=== PATIENT | female | born 1950 | race Caucasian/White ===

== ENCOUNTER 2019-05-23 04:23 | Inpatient (IN) | payer MEDICARE, BC ==
[~2019-05-23] VITALS: Ht 162.6 cm; Wt 62.0 kg
[2019-05-23] VITALS (19 sets, daily range): BP systolic 95–134; BP diastolic 54–84
[2019-05-23] MEDS ORDERED: ondansetron/PF 4mg/2ml inj IV ONE (04:45)
[2019-05-23] MEDS ORDERED: normal saline 1000ML IV soln IVB ONE (04:45)
[2019-05-23] MEDS: morphine 4 MG/ML inj SYRINge IV PRN ×2 (04:53→06:38)
[2019-05-23] MEDS ORDERED: meclizine 12.5mg tablet PO ONE ×2 (05:00→05:30)
[2019-05-23 05:04] LABS: BASOPHILS % (AUTO) 0.2 % (0-1); EOSINOPHILS % (AUTO) 0.4 % (0-6); HEMATOCRIT 39.8 % (35.0-45.0); HEMOGLOBIN 13.3 g/dl (12.0-16.0); LYMPHOCYTES # (AUTO) 1.2 X10'3 (1.1-4.8); MEAN CORPUSCULAR HEMOGLOBIN 30.2 PG (27.0-31.0); MEAN CORPUSCULAR HGB CONC 33.3 g/dL (33.0-36.5); MEAN CORPUSCULAR VOLUME 90.8 FL (78-98); MEAN PLATELET VOLUME 9.1 FL (7.4-10.4); MONOCYTES # (AUTO) 0.7 X10'3 (0-0.9); MONOCYTES % (AUTO) 6.6 % (2-12); NEUTROPHILS # (AUTO) 9.3 X10'3 (1.8-7.7); NEUTROPHILS % (AUTO) 81.8 % (42-75); PLATELET COUNT 179 X10'3 (140-440); RED BLOOD COUNT 4.38 X10'6 (4.20-5.60); RED CELL DISTRIBUTION WIDTH 13.2 % (11.5-14.5); WHITE BLOOD COUNT 11.3 X10'3 (4.5-11.0)
[2019-05-23 05:17] LABS: ALANINE AMINOTRANSFERASE 17 U/L (12-78); ALBUMIN 3.6 G/DL (3.4-5.0); ALKALINE PHOSPHATASE 52 IU/L (46-116); ANION GAP 10 (8-16); ASPARTATE AMINO TRANSFERASE 14 U/L (10-37); BILIRUBIN,TOTAL 0.7 MG/DL (0.1-1.0); BLOOD UREA NITROGEN 15 MG/DL (7-18); BUN/CREATININE RATIO 15.8 (6.6-38.0); CALCIUM 8.9 MG/DL (8.5-10.1); CHLORIDE 105 MMOL/L (99-107); CREATININE 0.95 MG/DL (0.40-0.90); GLUCOSE 116 MG/DL (70-104); LIPASE 165 U/L (73-393); POTASSIUM 3.7 MMOL/L (3.5-5.1); SODIUM 142 MMOL/L (135-145); TOTAL CARBON DIOXIDE 27.1 MMOL/L (24-32); TOTAL PROTEIN 7.1 G/DL (6.4-8.2); eGFR 58 ML/MIN
[2019-05-23] MEDS ORDERED: piperacillin/tazo 3.375gm/50ml 50 ML IV ONE (06:00)
[2019-05-23 06:25] LABS: CLARITY,URINE SLIGHTLY CLOUDY (Clear); COLOR,URINE YELLOW (Yellow); GLUCOSE, URINE NEGATIVE (Neg); KETONES,URINE NEGATIVE (Neg); LEUKOCYTE ESTERASE ,URINE TRACE (Neg); NITRITES, URINE POSITIVE (Neg); OCCULT BLOOD,URINE NEGATIVE (Neg); PH,URINE 8.5 (4.8-8.0); PROTEIN,URINE NEGATIVE (Neg); UROBILINOGEN,URINE 0.2 E.U/dL (0.2-1.0)
[2019-05-23 06:30] LABS: UA COLLECTION TYPE CLN CATCH MIDSTREAM
[2019-05-23 06:32] LABS: BACTERIA,URINE 4+ /HPF (Neg); RBC,URINE 0-2 /HPF (0-2); SQUAMOUS EPITHELIAL CELL,UR FEW /LPF (FEW); WBC,URINE 20-30 /HPF (0-4)
[2019-05-23 06:33] LABS: WBC CLUMPS,URINE MODERATE /HPF (NEGATIVE)
[2019-05-23] MEDS ORDERED: LANS15CA18 PO (06:33)
[2019-05-23] MEDS ORDERED: METO25TA6 PO (06:33)
[2019-05-23] MEDS ORDERED: normal saline 1000ml 1,000 ML IV ONE (07:45)
[2019-05-23] MEDS ORDERED: metoprolol tartrate 25mg tablet PO SCH (08:50)
[2019-05-23] MEDS ORDERED: potassium Cl 20 mEq SR tablet PO PRN ×2 (08:50)
[2019-05-23] MEDS: K and/or MAG REPLACEMENT MC SCH (08:50)
[2019-05-23] MEDS ORDERED: magnesium hydroxide 30ml (MOM) UD suspension PO PRN (08:50)
[2019-05-23] MEDS ORDERED: mag hydrox/Alum hydrox/simeth 30ml oral suspension PO PRN (08:50)
[2019-05-23] MEDS ORDERED: potassium CL 10mEq/100ml bag 100 ML IV PRN ×2 (08:50)
[2019-05-23] MEDS ORDERED: diphenhydrAMINE 25mg capsule PO PRN (08:50)
[2019-05-23] MEDS ORDERED: HYDROcodone/acetaminophen 10/325mg tab PO PRN (08:50)
[2019-05-23] MEDS ORDERED: diphenhydrAMINE 50 mg/ml inj IV PRN (08:50)
[2019-05-23] MEDS ORDERED: HYDROcodone/acetaminophen 5mg/325mg tablet PO PRN (08:50)
[2019-05-23] MEDS ORDERED: magnesium 4gm in 100ml NS 100 ML IV PRN (08:50)
[2019-05-23] MEDS ORDERED: magnesium Cl slow-release 64mg tablet PO PRN (08:50)
[2019-05-23] MEDS ORDERED: metoclopramide 5 mg/ml inj IV PRN (08:50)
[2019-05-23] MEDS ORDERED: acetaminophen 650mg rectal suppository RC PRN (08:50)
[2019-05-23] MEDS ORDERED: ondansetron/PF 4mg/2ml inj IV PRN ×2 (08:50→16:25)
[2019-05-23] MEDS ORDERED: acetaminophen 325mg tablet PO PRN ×2 (08:50)
[2019-05-23] MEDS ORDERED: magnesium 2GM in 50ml NS 50 ML IV PRN (08:50)
[2019-05-23] MEDS ORDERED: bisacodyl 10mg suppository rectal RC PRN (08:50)
[2019-05-23] MEDS ORDERED: morphine 2 MG/ML inj. syringe IV PRN ×2 (08:50)
[2019-05-23] MEDS: normal saline 1000ml 1,000 ML IV SCH ×3 (09:09→19:45)
[2019-05-23 09:21] LABS: HEMOGLOBIN A1C 5.5 % (4.5-6.2)
--- NOTE | 2019-05-23 10:45 | NUR ---
Pt. arrived on floor. She has been orientated to room, knows who her nurse is, and is awaiting a doctor. Assessment completed and fluids running per order. pt. states 0/10 pain at this time.
--- NOTE | 2019-05-23 11:50 | NUR ---
PAGER ID: [phone] MESSAGE: [id number] Marie ELLER pt. positive nasal swab MRSA
[2019-05-23] MEDS: piperacillin/tazo 3.375gm/50ml 50 ML IV SCH (15:52)
[2019-05-23] MEDS ORDERED: ringers solution, lacted 1,000 ML IV SCH (16:21)
[2019-05-23] MEDS ORDERED: proCHLORperazine 10 MG/2 ml inj IV PRN (16:25)
[2019-05-23] MEDS ORDERED: morphine 4 MG/ML inj SYRINge IV PRN ×2 (16:25)
[2019-05-23] MEDS ORDERED: meperidine/PF 25mg/ml syringe IV PRN ×3 (16:25)
--- NOTE | 2019-05-23 16:30 | NUR ---
Pt. removed from floor to go to OR for lap. appi. with Mina.
[2019-05-23] MEDS ORDERED: BUPIVAcaine/PF 2.5 mg/ml (0.25%) 30ml vial ONE ×2 (17:06→17:23)
[2019-05-23] MEDS ORDERED: fentaNYL/PF 50MCG/1 ML 2ML syringe ONE (17:19)
[2019-05-23] MEDS ORDERED: midazolam 2 mg/2 ml injection ONE (17:19)
[2019-05-23] MEDS ORDERED: propofol inj 20 ML IV ONE (17:21)
[2019-05-23] MEDS ORDERED: LIDOcaine 2% (20mg/ml) 5ml vial ONE (17:21)
[2019-05-23] MEDS ORDERED: dexamethasone sod phosphate 10mg/ml inj ONE (17:22)
[2019-05-23] MEDS ORDERED: neostigmine methylsulfate 1 MG/ML 10ml vial ONE (17:22)
[2019-05-23] MEDS ORDERED: sevoflurane 250ml liquid IH ONE (17:22)
[2019-05-23] MEDS ORDERED: ceFOXitin 2 GM ADDVANTGE BAG 50 ML IV ONE (17:49)
[2019-05-23] MEDS ORDERED: acetaminophen 1,000mg/100ml IV 100 ML IV ONE (17:57)
[2019-05-23] MEDS ORDERED: ondansetron/PF 4mg/2ml inj ONE (18:10)
[2019-05-23] MEDS ORDERED: rocuronium 10mg/ml inj IV ONE (18:11)
[2019-05-23] MEDS ORDERED: glycopyrrolate 0.2mg/ml inj ONE (18:21)
--- NOTE | 2019-05-23 18:32 | NUR ---
Received from OR via SURGICAL BED , accompanied by Anesthesiologist FLAVIO and report given by Anesthesiolgist. PATIENT WITH 18G PIV IN LEFT UE RUNNING LR AT 100. MEDICATED FOR PAIN UPON ARRIVAL/ Addendum: 05/23/19 at 1857 by Pranav Jones RN, RN Amended: Links added.
--- NOTE | 2019-05-23 18:33 | NUR ---
Pt. still in OR at this time. Gave report to Delmi CARRILLO.
--- NOTE | 2019-05-23 18:43 | NUR ---
5Patient in room [facility]. I have received report from LORENA Huff and had the opportunity to ask questions and assume patient care. Patient at the OR at the moment Addendum: 05/23/19 at 1844 by Mikayla Tamayo RN Amended: Links added.
--- NOTE | 2019-05-23 19:32 | NUR ---
ALL TRANSFER CRITERIA HAS BEEN MET. IV INTACT. PATIENT OFFERED MORE PAIN MEDS BUT PATIENT DECLINES. PATIENT DRESSINGS TO ABDOMEN ARE ALL CDI. LORENA ALVARES FOUND AND WENT INTO ROOM TO ASSESS PATIENT. PATIENTS DAUGHTER PRESENT AT BEDSIDE. Addendum: 05/23/19 at 1944 by Pranav Preciado - LORENA CARRILLO Amended: Links added.
--- NOTE | 2019-05-23 19:36 | NUR ---
patient arrived from OR in no distress with dtr, received report from Pranav, OR
[2019-05-23] MEDS ORDERED: temazepam 15mg capsule PO PRN (21:00)
[2019-05-23] MEDS: lactobacillus rhamnosus 10,000 MMU CELLS/CAPSULE PO SCH (21:18)
[2019-05-23] MEDS: heparin, porcine 5000 units/ml vial SQ SCH (21:19)
[2019-05-23] MEDS: metoprolol tartrate 25mg tablet PO SCH (21:20)
[2019-05-24] VITALS: BP 94/59
[2019-05-24] MEDS: piperacillin/tazo 3.375gm/50ml 50 ML IV SCH ×3 (00:43→15:43)
[2019-05-24] MEDS: normal saline 1000ml 1,000 ML IV SCH ×2 (04:19→15:43)
[2019-05-24 05:23] LABS: BASOPHILS % (AUTO) 0.1 % (0-1); EOSINOPHILS % (AUTO) 0 % (0-6); HEMATOCRIT 38.8 % (35.0-45.0); HEMOGLOBIN 12.8 g/dl (12.0-16.0); LYMPHOCYTES # (AUTO) 0.6 X10'3 (1.1-4.8); MEAN CORPUSCULAR HEMOGLOBIN 30.2 PG (27.0-31.0); MEAN CORPUSCULAR HGB CONC 32.9 g/dL (33.0-36.5); MEAN CORPUSCULAR VOLUME 91.8 FL (78-98); MEAN PLATELET VOLUME 9.9 FL (7.4-10.4); MONOCYTES # (AUTO) 0.1 X10'3 (0-0.9); MONOCYTES % (AUTO) 0.7 % (2-12); NEUTROPHILS # (AUTO) 8.7 X10'3 (1.8-7.7); NEUTROPHILS % (AUTO) 93.2 % (42-75); PLATELET COUNT 154 X10'3 (140-440); RED BLOOD COUNT 4.23 X10'6 (4.20-5.60); RED CELL DISTRIBUTION WIDTH 13.2 % (11.5-14.5); WHITE BLOOD COUNT 9.3 X10'3 (4.5-11.0)
[2019-05-24 05:37] LABS: ALANINE AMINOTRANSFERASE 67 U/L (12-78); ALBUMIN/GLOBULIN RATIO 0.9 (1.1-1.5); ALKALINE PHOSPHATASE 58 IU/L (46-116); ANION GAP 9 (8-16); ASPARTATE AMINO TRANSFERASE 39 U/L (10-37); BILIRUBIN,TOTAL 0.6 MG/DL (0.1-1.0); BLOOD UREA NITROGEN 11 MG/DL (7-18); BUN/CREATININE RATIO 12.9 (6.6-38.0); CALCIUM 7.8 MG/DL (8.5-10.1); CHLORIDE 111 MMOL/L (99-107); CHOL/HDL RATIO 3.8 (0.00-4.99); CHOLESTEROL 194 MG/DL (0-200); CREATININE 0.85 MG/DL (0.40-0.90); GLUCOSE 154 MG/DL (70-104); HDL CHOLESTEROL 51 MG/DL (35-60); LDL CHOLESTEROL 128 MG/DL (50-100); MAGNESIUM 2.2 MG/DL (1.5-2.4); PHOSPHORUS 2.8 MG/DL (2.3-4.5); POTASSIUM 4.2 MMOL/L (3.5-5.1); SODIUM 143 MMOL/L (135-145); TOTAL CARBON DIOXIDE 22.9 MMOL/L (24-32); TOTAL PROTEIN 6.4 G/DL (6.4-8.2); TRIGLYCERIDES 59 MG/DL (20-135); eGFR 66 ML/MIN
--- NOTE | 2019-05-24 06:24 | NUR ---
Problems reprioritized. Patient report given, questions answered & plan of care reviewed with LORENA Scott. Addendum: 05/24/19 at 0624 by Mikayla Tamayo RN Amended: Links added.
--- NOTE | 2019-05-24 06:41 | NUR ---
Patient in room [facility]. I have received report from Delmi Parker RN and had the opportunity to ask questions and assume patient care.
[2019-05-24 07:36] VITALS: BP 99/50
[2019-05-24] MEDS: metoprolol tartrate 25mg tablet PO SCH ×2 (08:00→20:46)
[2019-05-24] MEDS: K and/or MAG REPLACEMENT MC SCH (08:00)
[2019-05-24] MEDS: heparin, porcine 5000 units/ml vial SQ SCH ×2 (08:49→19:04)
[2019-05-24] MEDS: pantoprazole 40mg Tablet.DR PO SCH (08:49)
[2019-05-24] MEDS: lactobacillus rhamnosus 10,000 MMU CELLS/CAPSULE PO SCH ×2 (08:49→19:03)
[2019-05-24] MEDS ORDERED: LACT1CAP26 PO (11:31)
[2019-05-24] MEDS ORDERED: AMOX-419 PO (11:31)
[2019-05-24] MEDS ORDERED: CEFD300C3 PO (11:35)
[2019-05-24 12:01] VITALS: BP 122/63
--- NOTE | 2019-05-24 13:34 | NUR ---
LACTIC ACID 2.6. DR LR NOTIFIED AND ORDERS RECEIVED TO HOLD DISCHARGE UNTIL TOMORROW.
[2019-05-24] MEDS ORDERED: normal saline 1000ml 1,000 ML IV ONE (17:05)
--- NOTE | 2019-05-24 18:38 | NUR ---
Problems reprioritized. Patient report given, questions answered & plan of care reviewed with LORENA Garcia.
[2019-05-24 19:00] VITALS: BP 116/65
[2019-05-25] VITALS: BP 105/54
[2019-05-25] MEDS: piperacillin/tazo 3.375gm/50ml 50 ML IV SCH ×2 (00:15→07:34)
[2019-05-25 05:21] LABS: BASOPHILS % (AUTO) 0.2 % (0-1); EOSINOPHILS % (AUTO) 0.4 % (0-6); HEMATOCRIT 31.1 % (35.0-45.0); HEMOGLOBIN 10.4 g/dl (12.0-16.0); LYMPHOCYTES # (AUTO) 1.8 X10'3 (1.1-4.8); LYMPHOCYTES % (AUTO) 20.1 % (21-51); MEAN CORPUSCULAR HEMOGLOBIN 30.5 PG (27.0-31.0); MEAN CORPUSCULAR HGB CONC 33.3 g/dL (33.0-36.5); MEAN CORPUSCULAR VOLUME 91.6 FL (78-98); MEAN PLATELET VOLUME 9.5 FL (7.4-10.4); MONOCYTES # (AUTO) 0.5 X10'3 (0-0.9); NEUTROPHILS # (AUTO) 6.4 X10'3 (1.8-7.7); NEUTROPHILS % (AUTO) 73.3 % (42-75); PLATELET COUNT 133 X10'3 (140-440); RED BLOOD COUNT 3.39 X10'6 (4.20-5.60); RED CELL DISTRIBUTION WIDTH 13.5 % (11.5-14.5); WHITE BLOOD COUNT 8.8 X10'3 (4.5-11.0)
[2019-05-25 05:38] LABS: ALANINE AMINOTRANSFERASE 37 U/L (12-78); ALBUMIN 2.3 G/DL (3.4-5.0); ALBUMIN/GLOBULIN RATIO 0.9 (1.1-1.5); ALKALINE PHOSPHATASE 48 IU/L (46-116); ANION GAP 7 (8-16); ASPARTATE AMINO TRANSFERASE 17 U/L (10-37); BILIRUBIN,TOTAL 0.3 MG/DL (0.1-1.0); BLOOD UREA NITROGEN 15 MG/DL (7-18); BUN/CREATININE RATIO 17.2 (6.6-38.0); CALCIUM 7.3 MG/DL (8.5-10.1); CHLORIDE 116 MMOL/L (99-107); CREATININE 0.87 MG/DL (0.40-0.90); GLUCOSE 107 MG/DL (70-104); MAGNESIUM 2.1 MG/DL (1.5-2.4); POTASSIUM 3.8 MMOL/L (3.5-5.1); SODIUM 146 MMOL/L (135-145); eGFR 65 ML/MIN
--- NOTE | 2019-05-25 06:21 | NUR ---
Patient in room [facility]. I have received report from LORENA Garcia and had the opportunity to ask questions and assume patient care.
--- NOTE | 2019-05-25 06:26 | NUR ---
Problems reprioritized. Patient report given, questions answered & plan of care reviewed with LORENA Scott.
[2019-05-25 07:21] VITALS: BP 143/67
[2019-05-25] MEDS: metoprolol tartrate 25mg tablet PO SCH (07:35)
[2019-05-25] MEDS: lactobacillus rhamnosus 10,000 MMU CELLS/CAPSULE PO SCH (07:35)
[2019-05-25] MEDS: pantoprazole 40mg Tablet.DR PO SCH (07:35)
[2019-05-25] MEDS: heparin, porcine 5000 units/ml vial SQ SCH (07:37)
[2019-05-25] MEDS: K and/or MAG REPLACEMENT MC SCH (08:00)
[2019-05-25] MEDS: normal saline 1000ml 1,000 ML IV SCH (10:21)
[2019-05-25 11:00] VITALS: BP 119/54
--- NOTE | 2019-05-25 12:52 | NUR ---
Pt discharged to home with all belongings, in private vehicle, accompanied by family. Pt states pajama bottoms and underwear lost after going to surgery. Discharge instructions and medications reviewed, new prescriptions called to [facility] in [place]. IV DC'd, cannula intact. Pt instructed to follow up with Dr Enriquez in 1 week, phone number provided. Pt escorted to front lobby in wheelchair by PCT.
== END 2019-05-25 12:53 | disposition home or self-care (01) | DRG 336 ==
LOC: ER 04:24 → SUR 3N 09:40
PROVIDERS: ADMIT Emergency Medicine; ATTEND Family Medicine
PROC: 0DNE0ZZ Release Large Intestine, Open Approach (ICD-10-PCS; 2019-05-23)
PROC: 0DTJ0ZZ Resection of Appendix, Open Approach (ICD-10-PCS; 2019-05-23)
PROC: 0DNJ0ZZ Release Appendix, Open Approach (ICD-10-PCS; principal; 2019-05-23 17:22)
DX: K35.30 Acute appendicitis with localized peritonitis, without perforation or gangrene (principal); N39.0 Urinary tract infection, site not specified; E87.2 Acidosis; J47.9 Bronchiectasis, uncomplicated; K38.1 Appendicular concretions; K66.0 Peritoneal adhesions (postprocedural) (postinfection); K21.9 Gastro-esophageal reflux disease without esophagitis; M81.0 Age-related osteoporosis without current pathological fracture; B96.89 Other specified bacterial agents as the cause of diseases classified elsewhere; M47.812 Spondylosis without myelopathy or radiculopathy, cervical region; I10 Essential (primary) hypertension; Z88.6 Allergy status to analgesic agent; Z88.8 Allergy status to other drugs, medicaments and biological substances; Z88.1 Allergy status to other antibiotic agents; Z90.49 Acquired absence of other specified parts of digestive tract; Z80.3 Family history of malignant neoplasm of breast; Z82.49 Family history of ischemic heart disease and other diseases of the circulatory system; Z83.3 Family history of diabetes mellitus; Z90.710 Acquired absence of both cervix and uterus; Z79.899 Other long term (current) drug therapy
CPT/HCPCS: 36415; 71045; 74176; 80053; 80061; 81001; 82948; 83036; 83605; 83690; 83735; 84100; 84145; 85025; 85730; 86885; 86900; 86901; 87040; 87077; 87081; 87088; 88304; 93005; 96361; 96374; 96375; 99285; A4215; A4618; A7000; G0378; J0131; J0694; J1100; J1644; J2001; J2175; J2250; J2270; J2405; J2543; J2704; J2710; J3010; J3490; J7030; J7120; J8597

== ENCOUNTER 2023-07-05 13:00 | Outpatient (CLI) | payer MEDICARE, BC ==
[2023-07-05] VITALS (21 sets, daily range): BP systolic 123–159; BP diastolic 69–103; PULSE 57–66
[~2023-07-05 13:00] MED LIST: LACT1CAP26 PO; LANS15CA18 PO; LOP25T PO
== END 2023-07-05 23:59 | disposition home or self-care (01) ==
LOC: CARD DIAG 13:00
PROVIDERS: ATTEND Physician Assistant
DX: R42 Dizziness and giddiness (principal)
CPT/HCPCS: 93660

== ENCOUNTER 2025-05-09 11:58 | Emergency (ER) | payer MEDICARE, BC ==
[~2025-05-09] VITALS: Ht 162.6 cm; Wt 68.4 kg
[2025-05-09 12:02] VITALS: TEMP 97.5
--- NOTE | 2025-05-09 12:05 | Physician Documentation ---
History of Present Illness ~ Stated Complaint: HIGH BLOOD PRESSURE Time Seen by MD: 12:05 Primary Medical Doctor: Barbie Boyd [facility] This is a 75-year-old female who presents to the emergency department at the prompting of her primary care provider, Dr. López. She reports that she woke up this morning, checked her blood pressure, and had wide variations in the readings between low and very high. She went to her primary care provider's office to have her blood pressure checked, and someone at the office directed her to the emergency department due to the wide fluctuations in her blood pressure. The patient reports chronic headaches, does have one today, no worse than usual. She has had some dizziness. She denies any chills or fever, nausea or vomiting, abdominal pain, or other symptoms of concern. She reports that she takes metoprolol for her blood pressure, and did have her dose today. She takes metoprolol tartrate 25 mg po BID. Medication Reconciliation Allergies: Coded Allergies: NSAIDS (Non-Steroidal Anti-Inflamma (Verified Allergy, Unknown, 05/23/19) specifically Aleve, Ibuprofen, Mobic - swelling of joints, and flu-like symptoms ciprofloxacin (Verified Allergy, Unknown, 12/19/18) prednisone (Verified Allergy, Unknown, 12/19/18) Scheduled Lactobacillus Rhamnosus (Culturelle), 10,000 MMU PO Q12H Lansoprazole (Lansoprazole), 15 MG PO DAILY, (Reported) Losartan Potassium (Losartan Potassium), 1 TAB PO DAILY Metoprolol Tartrate* (Lopressor tablet*), 25 MG PO BID, (Reported) Past Medical History Past Medical History: GERD, Osteoporosis Past Surgical History: cholecystectomy Alcohol Use: None Drug Use: none Lives In: Home Occupation: retired Review of Systems ROS As stated above in the HPI, otherwise all systems are reviewed and negative. Physical Exam Physical Exam General: Alert, no apparent distress. Neck: Full range of motion. Respiratory: Lungs clear, no respiratory distress. Chest: No accessory muscle use. Cardiovascular: Regular rate and rhythm, no murmurs. Gastrointestinal: Soft, nontender, nondistended. Bowels sounds present. Extremities: Normal range of motion, no deformity. Neurologic: Oriented x4. Psychiatric: Normal mood and affect. Skin: Normal color, warm and dry. No edema, no ecchymosis. Progress Results/Orders Results/Orders Completed Orders - CORINA HAYS [place] [employer] Electrocardiogram (05/09/25 ) Hs Troponin I W Calculations (05/09/25 12:18) BMP (05/09/25 12:18) Cbc/Diff (05/09/25 12:18) PBNP (05/09/25 12:19) Vital Signs 05/09/25 05/09/25 12:02 13:07 Temp 97.5 Pulse 57 61 Resp 18 17 B/P (MAP) 172/71 160/68 (98) Pulse Ox 99 95 O2 Flow Rate 0 0 Laboratory Tests Test 05/09/25 12:11 White Blood Count 6.0 Red Blood Count 4.36 Hemoglobin 13.2 Hematocrit 39.4 Mean Corpuscular Volume 90.2 Mean Corpuscular Hemoglobin 30.2 Mean Corpuscular Hemoglobin Concent 33.5 Red Cell Distribution Width 13.4 Platelet Count 172 Mean Platelet Volume 9.0 Neutrophils (%) (Auto) 71.7 Lymphocytes (%) (Auto) 17.5 L Monocytes (%) (Auto) 8.2 Eosinophils (%) (Auto) 1.8 Basophils (%) (Auto) 0.8 Neutrophils # (Auto) 4.3 Lymphocytes # (Auto) 1.0 L Monocytes # (Auto) 0.5 Eosinophils # (Auto) 0.1 Basophils # (Auto) 0.0 CBC Comment Sodium Level 137 Potassium Level 4.2 Chloride Level 101 Carbon Dioxide Level 29.9 Anion Gap 6 L Blood Urea Nitrogen 11 Creatinine 0.84 Estimated GFR/1.73 m2 66 BUN/Creatinine Ratio 13.1 Glucose Level 104 Calcium Level 9.1 Troponin I High Sensitivity 6 Pro-B-Type Natriuretic Peptide 195 Albumin 3.8 Chemistry Comments EKG/XRAY/CT/US/VASC/MRI EKG : Additional Comment 1210 EKG interpreted to show sinus bradycardia with rate of 53. No ectopy. No ST segment elevation. QTC 405 ms. Medical Decision Making Additional Information This is a well-appearing 75-year-old female who presented to the emergency department at the urging of her primary care provider's office. She had presen maryuri there due to concerns for erratic blood pressure readings. Evidently they checked her blood pressure, found it to be very high, directed her here. The patient was found to be well-appearing with no physical symptoms or concerns. She had a negative troponin, normal proBNP, normal EKG. She was considered appropriate for discharge. Losartan 25 mg daily will be added to her medication regimen. She should follow up with the primary care provider within two weeks for follow up on her blood pressure and a medication adjustment. She should return here with any emergent issues. Departure Time of Disposition: 13:33 Disposition: 01 HOME / SELF CARE / HOMELESS Impression: Primary Impression: Essential hypertension Condition: Stable Discharge Instructions: Hypertension, Adult Additional Instructions: Continue taking your metoprolol tartrate 25 mg twice a day. Add losartan 25 mg daily and followup within two weeks with your primary care provider for blood pressure recheck. Normal labs and EKG today. Return for chest pain, shortness of breath, or other concerns that you are getting worse rather than better. Referrals: NO PRIMARY CARE PROVIDER (PCP) Prescriptions Losartan Potassium (Losartan Potassium) 25 Mg Tablet 1 TAB PO DAILY for 30 Days, #30 TAB 0 Refills Prov: CORINA HAYS NP 05/09/25 Education Educated: Patient Educated regarding: diagnosis, treatment, prognosis, need for follow up Signature Scribe Signature: x Attestation: The note accurately reflects work and decisions made by me.Corina Jones NP 05/09/25 12:08 CORINA HAYS NP May 09, 2025 12:05
--- NOTE | 2025-05-09 12:20 | ELECTROCARDIOGRAPH REPORT ---
[facility] Test Date: 2025-05-09 Test Time: 12:10:32 Pat Name: ROMULO MOSS Department: ORTHO/NEURO Room: Gender: F [employer]: : 1950 Requested By: ANNIA HAYS Order Number: [id number] Reading MD: Measurements Intervals Yoder Rate: 53 P: -23 IN: 197 QRS: 71 QRSD: 94 T: 67 QT: 431 QTc: 405 Interpretive Statements Sinus bradycardia Please click the below link to view image of tracing.
[2025-05-09 12:32] LABS: MEAN PLATELET VOLUME 9.0 FL (7.4-10.4); RED CELL DISTRIBUTION WIDTH 13.4 % (11.5-14.5)
[2025-05-09 12:48] LABS: CREATININE 0.84 MG/DL (0.40-0.90); PRO BRAIN NATRIURETIC PEPTIDE 195 PG/ML (0-450); TOTAL CARBON DIOXIDE 29.9 MMOL/L (24-32); eCRCL 50 ML/MIN; eGFR 66 ML/MIN
[2025-05-09 13:07] VITALS: BP 160/68; PULSE 61; RESP 17; O2SAT 95
[2025-05-09] MEDS ORDERED: LOSA25TA41 PO (13:34)
[2025-05-13] MEDS ORDERED: PRE1T PO (23:44)
[2025-05-13] MEDS ORDERED: ROSU5TAB51 PO (23:44)
[2025-05-14] MEDS ORDERED: LOSA-415 PO (13:05)
[2025-05-14] MEDS ORDERED: ASPI-1071 PO (17:19)
== END 2025-05-09 13:44 | disposition home or self-care (01) ==
LOC: ER 11:58
DX: I10 Essential (primary) hypertension (principal); R51.9 Headache, unspecified; R06.02 Shortness of breath; K21.9 Gastro-esophageal reflux disease without esophagitis; M81.0 Age-related osteoporosis without current pathological fracture; Z79.899 Other long term (current) drug therapy; Z88.1 Allergy status to other antibiotic agents; Z88.6 Allergy status to analgesic agent; Z88.8 Allergy status to other drugs, medicaments and biological substances; Z90.49 Acquired absence of other specified parts of digestive tract
CPT/HCPCS: 36415; 80048; 83880; 84484; 85025; 93005; 99284